=== PATIENT | male | born 1960 | race Two or more races ===

== ENCOUNTER 2018-11-15 05:58 | Emergency (ER) | payer OTHER ==
[~2018-11-15] VITALS: Ht 172.7 cm; Wt 79.4 kg
[~2018-11-15 05:58] MED LIST: ALTACE10 MG PO; APRESOLINE; BENADRYL50 MG PO; MILLIPRED5 MG PO; NORVASC2.5 MG; SIMVASTATIN40 MG PO
[2018-11-15] MEDS ORDERED: INDOMETHACIN50 MG PO (08:14)
== END 2018-11-15 08:25 | disposition home or self-care (01) ==
LOC: ER 05:58
DX: M13.872 Other specified arthritis, left ankle and foot (principal); M25.572 Pain in left ankle and joints of left foot

== ENCOUNTER 2019-01-05 11:32 | Emergency (ER) | payer OTHER ==
[~2019-01-05] VITALS: Ht 172.7 cm; Wt 78.9 kg
[~2019-01-05 11:32] MED LIST changes: +INDOMETHACIN50 MG PO
== END 2019-01-05 13:14 | disposition home or self-care (01) ==
LOC: ER 11:32
DX: S80.12XA Contusion of left lower leg, initial encounter (principal); V94.89XA Other water transport accident, initial encounter; Y93.89 Activity, other specified; Y92.89 Other specified places as the place of occurrence of the external cause; Y99.8 Other external cause status

== ENCOUNTER → 2019-01-23 | Outpatient (CLI) | payer OTHER | END | disposition home or self-care (01) | LOC: RAD 10:09 → MAMO-SONO 10:15 | DX: M10.072 Idiopathic gout, left ankle and foot (principal); M10.061 Idiopathic gout, right knee; M10.062 Idiopathic gout, left knee ==

== ENCOUNTER 2021-03-05 22:28 | Emergency (ER) | payer OTHER ==
[~2021-03-05] VITALS: Ht 172.7 cm; Wt 81.6 kg
[2021-03-05] MEDS ORDERED: TYLENOL (22:50)
[2021-03-05] MEDS ORDERED: HORIZANT300 MG (22:50)
[2021-03-06] MEDS ORDERED: KETO10TA2 PO (02:20)
== END 2021-03-06 02:31 ==
LOC: ER 22:28
DX: M25.461 Effusion, right knee (principal); I10 Essential (primary) hypertension

== ENCOUNTER 2024-07-26 14:55 | Emergency (ER) | payer OTHER ==
[~2024-07-26] VITALS: Ht 167.6 cm; Wt 77.1 kg
[~2024-07-26 14:55] MED LIST changes: +HORIZANT300 MG; +KETO10TA2 PO; +TYLENOL
[2024-07-26 16:07] VITALS: BP 140/84; O2SAT 99
== END 2024-07-26 20:40 | disposition home or self-care (01) ==
LOC: ER 14:58
DX: I10 Essential (primary) hypertension (principal); Z88.0 Allergy status to penicillin

== ENCOUNTER 2024-10-08 20:18 | Emergency (ER) | payer OTHER ==
[~2024-10-08] VITALS: Ht 175.3 cm; Wt 81.6 kg
[2024-10-08] MEDS ORDERED: ATORVASTATIN CA40 MG (20:23)
[2024-10-08] MEDS ORDERED: FENOFIBRATE50 MG (20:24)
[2024-10-08] MEDS ORDERED: 0.9 % SODIUM CHLORIDE 1,000 ML IV ONE (20:45)
[2024-10-08] MEDS ORDERED: FAMOtidine 10 MG/ML (4ML VIAL) IV ONE (20:45)
[2024-10-08] MEDS ORDERED: TRAMADOL HCL 50 MG TABLET PO ONE (20:45)
[2024-10-08] MEDS ORDERED: FAMOTIDINE/PF 20 MG/2 ML VIAL ONE (21:23)
[2024-10-08 23:44] LABS: INR 0.99; PARTIAL THROMBOPLASTIN TIME 25.4 SECONDS (22.0-34.0); PROTHROMBIN TIME 10.8 SECONDS (9.0-11.5)
[2024-10-08 23:48] LABS: ALBUMIN 3.7 gm/dL (3.4-5.0); BILIRUBIN TOTAL 0.22 mg/dL (0.3-1.2); CALCIUM 8.6 mg/dL (8.5-10.1); CREATININE SERUM 0.93 mg/dL (0.70-1.30); GFR 82.06; POTASSIUM 3.23 mEq/L (3.5-5.1); TOTAL PROTEIN 7.7 gm/dL (6.4-8.2)
[2024-10-08 23:53] LABS: BASO % 0.2 % (0.1-1.2); EOS # 0.01 (0.04-0.54); EOS % 0.1 % (0.7-7.0); HEMATOCRIT 39.6 % (40.1-51.0); LYMPH # 2.25 (1.18-3.74); LYMPH % 26.8 % (19.3-53.1); MEAN CORPUSCULAR HEMOGLOBIN 31.8 pg (25.6-32.2); MONO # 0.42 (0.24-0.82); NEUT # 5.69 (1.56-6.13); NEUT % 67.8 % (34.0-71.1); PLATELET COUNT 175 K/uL (163-369); RED CELL DISTRIBUTION WIDTH 13.4 % (11.6-14.4)
== END 2024-10-09 08:52 | disposition home or self-care (01) ==
LOC: ER 20:18
PROVIDERS: General Practice
DX: S34.109A Unspecified injury to unspecified level of lumbar spinal cord, initial encounter (principal); W18.39XA Other fall on same level, initial encounter; Y93.89 Activity, other specified; Y92.89 Other specified places as the place of occurrence of the external cause; G82.20 Paraplegia, unspecified; Z88.0 Allergy status to penicillin; I10 Essential (primary) hypertension